=== PATIENT | female | born 1975 | race Caucasian/White ===

== ENCOUNTER 2024-03-02 00:05 | Emergency (ER) | payer OTHER ==
[~2024-03-02] VITALS: Ht 162.6 cm; Wt 89.0 kg
[2024-03-02 00:12] VITALS: BP 129/84; PULSE 92; RESP 15; TEMP 98.2; O2SAT 99
== END 2024-03-02 00:20 | disposition left against medical advice (07) ==
LOC: ER 00:05
DX: H92.01 Otalgia, right ear (principal)
CPT/HCPCS: 99281